=== PATIENT | male | born 1950 | race Native Hawaiian/Other Pacific Islander ===

== ENCOUNTER → 2017-01-24 | Outpatient (CLI) | payer BC, MEDICARE | END | disposition home or self-care (01) | LOC: GMAM 10:47 | PROVIDERS: ATTEND Family Medicine | DX: Z12.5 Encounter for screening for malignant neoplasm of prostate (principal) ==

== ENCOUNTER → 2017-02-25 | Outpatient (CLI) | payer MEDICARE ==
--- NOTE | 2017-02-25 11:13 | US ---
EXAM DESCRIPTION: Aorta CLINICAL HISTORY: 66 years Male, AAA Limited abdominal ultrasound for evaluation of the abdominal aorta. Grayscale images were saved patient's medical record. The proximal abdominal aorta measures 2.4 x 1.8 cm. The mid abdominal aorta measures 2.5 x 2.1 cm. The distal abdominal aorta measures 2.3 x 2.5 cm the bilateral common iliac vessels measure approximately 9 mm-10 mm the right IMPRESSION: Minimal ectasia of the infrarenal abdominal aorta measuring a maximum of 2.5 cm in diameter. Electronically signed by: Wes Pink MD 02/25/2017 11:12 AM CDT
== END | disposition home or self-care (01) ==
LOC: US 09:27
PROVIDERS: ATTEND Family Medicine
DX: R31.29 Other microscopic hematuria (principal)

== ENCOUNTER → 2017-03-01 | Outpatient (CLI) | payer MEDICARE ==
--- NOTE | 2017-03-02 06:29 | CT ---
Procedure: CT CHEST WITH IV CONTRAST Exam date: 03/01/2017 12:00 AM CDT Ordering Provider: CLEVE DAN Clinical Indication: CHEST PAIN Comparison: None Technique: Using a multislice scanner, sequential axial imaging was obtained in the thorax from the level of the thoracic inlet through the lung bases. The exam was obtained with the administration of IV contrast. 2D sagittal and coronal reconstructed images were obtained. FINDINGS: Diffuse emphysematous changes, predominantly in the lung apices. There are scattered calcified granulomas as well. Otherwise, no suspicious spiculated mass lesion or pulmonary nodule identified. No bronchiectasis. No pleural effusions or pneumothorax. Cardiac size is normal. There is no pericardial effusion. Aorta and pulmonary arteries are grossly unremarkable. Two-vessel aortic arch noted. Bullous timing was not sent for pulmonary angiography and segmental or subsegmental pulmonary emboli cannot be excluded. No dissection or aneurysm seen. There is no supraclavicular or axillary lymphadenopathy. There is no mediastinal, hilar, or subcarinal lymphadenopathy. There are no skeletal abnormalities. IMPRESSION 1. Emphysematous changes of the lungs as well as scattered calcified granulomas noted. Otherwise, nonacute CT of the chest with contrast. Electronically signed by: Brijesh Merritt MD 03/02/2017 6:29 AM CDT
== END | disposition home or self-care (01) ==
LOC: CT 08:05
PROVIDERS: ATTEND Family Medicine
DX: I20.9 Angina pectoris, unspecified (principal); Z87.891 Personal history of nicotine dependence

== ENCOUNTER → 2017-11-28 | Outpatient (CLI) | payer MEDICARE, OTHER | END | disposition home or self-care (01) | LOC: GMAM 17:55 | PROVIDERS: ATTEND Family Medicine | DX: R53.83 Other fatigue (principal); E55.9 Vitamin D deficiency, unspecified ==

== ENCOUNTER → 2018-10-01 | Outpatient (CLI) | payer MEDICARE, OTHER | LOC: GMAM 12:24 | PROVIDERS: ATTEND Family Medicine | DX: E55.9 Vitamin D deficiency, unspecified (principal); Z12.5 Encounter for screening for malignant neoplasm of prostate | CPT/HCPCS: 82306; G0103 ==

== ENCOUNTER → 2018-10-23 | Outpatient (CLI) | payer MEDICARE, OTHER ==
--- NOTE | 2018-10-24 09:08 | US ---
EXAM DESCRIPTION: Aorta CLINICAL HISTORY: 67 years Male, AAA COMPARISON: None. TECHNIQUE: Multiplanar grayscale and Doppler sonographic images of the abdominal aorta obtained. FINDINGS: The proximal, mid, and distal abdominal aortic diameters measure up to 2.1, 1.9 and 1.7 cm respectively. IMPRESSION: 1. The proximal, mid and distal abdominal aortic diameters are within normal limits. Electronically signed by: Bandar Hernandez MD 10/24/2018 9:07 AM [employer]GER
== END ==
LOC: US 08:59
PROVIDERS: ATTEND Family Medicine
DX: I71.4 Abdominal aortic aneurysm, without rupture (principal)

== ENCOUNTER → 2020-01-05 | Outpatient (CLI) | payer MEDICARE, OTHER | LOC: GMAM 10:27 | PROVIDERS: ATTEND Family Medicine | DX: Z12.5 Encounter for screening for malignant neoplasm of prostate (principal); E55.9 Vitamin D deficiency, unspecified; E78.2 Mixed hyperlipidemia; I10 Essential (primary) hypertension | CPT/HCPCS: 82306; G0103 ==

== ENCOUNTER → 2020-04-13 | Outpatient (CLI) | payer MEDICARE, OTHER ==
--- NOTE | 2020-04-13 16:58 | MRI ---
EXAM DESCRIPTION: Brain w/o Contrast: MRI. CLINICAL HISTORY: VISUAL DISTURBANCES COMPARISON: None. TECHNIQUE: Multiplanar, high-field MRI unit, multiple diffusion sequences, multiple conventional sequences without contrast. FINDINGS: Small foci of hyperintense FLAIR and T2-weighted signal in the periventricular anterior left frontal space and junction with the adjacent left frontal subcortical white matter on FLAIR series 501, image 12. Question of a similar-appearing lesion in the right frontal parietal junction in the centrum semiovale on the same series, image 17. Not well seen on T2 images.. Normal signal in the bilateral basal ganglia. Normal signal in the brainstem and cerebellar hemispheres. Concordance of the diffusion and non-diffusion sequences with no diffusion restriction. Cortical sulci, ventricles, and other CSF spaces, and the subdural spaces are normally configured for patients age.. No effacement or displacement. No midline shift. No extra-axial hemorrhage. Normal flow signal void in the major vessels of the venetie Carroll, and the venous sinuses. IACs are symmetric bilaterally. Normal signal in the bilateral mastoid air cells. No mass effect in the bilateral cerebellopontine angles. Pituitary gland occupies most of the sella. Base of the cerebellar tonsils is at the level of the foramen magnum. Mucoperiosteal thickening in most of the paranasal sinuses with only the superior maxillary antra visualized. More involvement in the anterior left ethmoid air cells. Minimal fluid and thickening in the right sphenoid air cell and in the posterior left ethmoid air cell. Chronic thickening in the frontal sinuses.. The bony calvarium is intact. Minimal edema with possible swelling/thickening of the left optic nerve. No mass in the orbit or the orbital cone on the left. Optic globes are symmetric bilaterally. IMPRESSION: 1. Minimal edema in the distal left optic nerve with swelling and enlargement of the nerve compared to the right optic nerve. No left orbital mass with symmetric appearance of the left optic globe. Correlate with clinical findings and consider follow-up MRI ORBIT study with and without gadolinium IV contrast. 2. Small focal white matter changes as described. These could be related to cerebral microvascular disease, migraine headaches, vasculitis, or aging. 3. Paranasal chronic pansinusitis. 4. No intra-axial extra-axial hemorrhage, mass effect, or cerebral edema. Normal noncontrast MRI diffusion study with no diffusion restriction; no evidence significant ischemia or acute or subacute infarction. Electronically signed by: Jc Espinal MD 04/13/2020 4:56 PM CDT
== END ==
LOC: MRI 13:00
PROVIDERS: ATTEND Family Medicine
DX: H53.8 Other visual disturbances (principal); H47.10 Unspecified papilledema; J32.4 Chronic pansinusitis; R90.82 White matter disease, unspecified

== ENCOUNTER → 2020-04-18 | Outpatient (CLI) | payer MEDICARE, OTHER ==
--- NOTE | 2020-04-19 08:29 | MRI ---
EXAM DESCRIPTION: Orbit,Face/Neck w/wo Contrast: MRI. CLINICAL HISTORY: 69 years Male ABNORMAL BRAIN SCAN COMPARISON: MRI scan of the brain without contrast April 13. TECHNIQUE: Multiplanar, high-field MRI, multiple sequences, without contrast and with IV gadolinium, 1 mL per 5 kg body weight: Orbits. FINDINGS: Deviation is noted in the course of the distal left optic nerve without abnormal enhancement in the optic nerve or surrounding sheath. Normal course and enhancement of the right optic nerve and sheath. Normal signal and enhancement in the bilateral optic nerves to the optic chiasm and in the optic tracts posterior to the chiasm. No suprasellar mass or abnormal contrast enhancement. The intraconal compartment of the left orbit demonstrates normal signal and enhancement with no mass. Normal right intraconal compartment. Normal signal and enhancement in the extraconal compartment of both orbits. Normal signal and enhancement in the bilateral optic globes and extraocular muscles. Mucoperiosteal thickening in the anterior ethmoid air cells more left than right. Also in the posterior left ethmoid air cell. Mucoperiosteal thickening in the sphenoid air cells in the midline and to the right of midline. Minimal contrast enhancement. IMPRESSION: 1. Minimal deviation in the course of the left optic nerve in the intraconal compartment of the left orbit, but no abnormal signal, no abnormal contrast enhancement, and no mass effect. 2. Bilateral optic nerves optic chiasm and optic tracts demonstrate normal signal and enhancement. 3. Chronic sinusitis in multiple air cells as discussed above. No air-fluid levels to indicate acute disease. Electronically signed by: Jc Espinal MD 04/19/2020 8:28 AM CDT
== END ==
LOC: MRI 09:33
PROVIDERS: ATTEND Family Medicine
DX: H53.8 Other visual disturbances (principal); R94.02 Abnormal brain scan; J32.9 Chronic sinusitis, unspecified